=== PATIENT | female | born 1945 | race Caucasian/White ===

== ENCOUNTER 2019-01-31 09:36 | Emergency (ER) | payer MEDICARE, BC ==
[2019-01-31 10:19] VITALS: BP 136/57
--- NOTE | 2019-01-31 10:59 | UC ---
Throat Pain/Nasal Dillan HPI - HPI Summary HPI Summary: 73-year-old female presents with 2 day history of fever, chills, general malaise , fatigue, body aches, nasal congestion, sinus pressure, and nonproductive cough. Has not received her flu shot. History of pneumonia May 2018. Denies ear pain, dysphagia, chest pain, shortness of breath, abdominal pain, nausea, vomiting, or diarrhea. - History of Current Complaint Chief Complaint: UCRespiratory Stated Complaint: ACHES,COUGH Time Seen by Provider: 01/31/19 10:41 Hx Obtained From: Patient Pain Intensity: 7 - Allergies/Home Medications Allergies/Adverse Reactions: Allergies Allergy/AdvReac Type Severity Reaction Status Date / Time No Known Allergies Allergy Verified 01/31/19 10:09 Home Medications: Home Medications Dm/PE/Acetaminophen/Chlorphenr [Jillian-Maidens Plus Cld-Cough Cp] 1 each PO PRN [History] PMH/Surg Hx/FS Hx/Imm Hx Cardiovascular History: Hypertension, Atrial Fibrillation - Surgical History Surgical History: Yes Surgery Procedure, Year, and Place: Lt Breast biopsy - [facility] - Family History Known Family History: Positive: Non-Contributory - Social History Occupation: Employed Full-time Lives: With Family Alcohol Use: Weekly Alcohol Amount: GLASS OF WINE Substance Use Type: None Smoking Status (MU): Never Smoked Tobacco - Immunization History Most Recent Influenza Vaccination: FALL 2014 Most Recent Tetanus Shot: UP TO DATE Most Recent Pneumonia Vaccination: AROUND AGE 63 Review of Systems All Other Systems Reviewed And Are Negative: Yes Constitutional: Positive: Fever, Chills, Fatigue Skin: Negative: Rash Eyes: Negative: Drainage, Eye Redness ENT: Positive: Nasal Discharge, Sinus Congestion, Sinus Pain/Tenderness. Negative: Sore Throat, Ear Ache Respiratory: Positive: Cough. Negative: Shortness Of Breath Cardiovascular: Negative: Palpitations, Chest Pain Gastrointestinal: Negative: Abdominal Pain, Vomiting, Diarrhea, Nausea Genitourinary: Positive: Negative Musculoskeletal: Positive: Myalgia Neurological: Positive: Headache. Negative: Weakness, Paresthesia, Numbness Is Patient Immunocompromised?: No Physical Exam - Summary Physical Exam Summary: GENERAL APPEARANCE: Well developed, well nourished, alert and cooperative, older adult female who appears to be in no acute distress. EYES: Conjunctiva clear. No drainage. EARS: External auditory canals and tympanic membranes clear, hearing grossly intact. NOSE: Moderate nasal congestion. No nasal discharge. THROAT: Pharyngeal cobblestoning. No tonsilar inflammation, swelling, exudate, or lesions. Uvula midline. NECK: Neck supple, non-tender without lymphadenopathy. CARDIAC: Normal S1 and S2. No S3, S4 or murmurs. Rhythm is irregularly irregular. There is no peripheral edema, cyanosis or pallor. Extremities are warm and well perfused. Capillary refill is less than 2 seconds. Peripheral pulses intact. LUNGS: Clear to auscultation without rales, rhonchi, wheezing or diminished breath sounds. Dry, nonproductive cough. ABDOMEN: Positive bowel sounds. Soft, nondistended, nontender. No guarding or rebound. No masses or hepatosplenomegally. MUSKULOSKELETAL: ROM intact to all extremities. No joint erythema or tenderness. Normal muscular development. Normal gait. SKIN: Skin normal color, texture and turgor with no lesions or eruptions. Triage Information Reviewed: Yes Vital Signs: Initial Vital Signs Temp 98.2 F 01/31/19 10:13 Pulse 59 01/31/19 10:13 Resp 20 01/31/19 10:13 BP 136/57 01/31/19 10:13 Pulse Ox 98 01/31/19 10:13 Vital Signs Reviewed: Yes Throat Pain/Nasal Course/Dx - Course Course Of Treatment: 73-year-old female presents with 2 day history of fever, chills, general malaise , fatigue, body aches, nasal congestion, sinus pressure, and nonproductive cough. Has not received her flu shot. History of pneumonia May 2018. Denies ear pain, dysphagia, chest pain, shortness of breath, abdominal pain, nausea, vomiting, or diarrhea. Afebrile. Vital signs stable. Patient had moderate nasal congestion, normal TMs, pharyngeal cobblestoning, no tonsillar swelling or exudate, no cervical lymphadenopathy, clear bilateral breath sounds , dry nonproductive cough, and otherwise unremarkable exam. Rapid flu test was negative. Reviewed results with the patient. Recommending symptomatic treatment for a viral upper respiratory infection including prescriptions for fluticasone nasal spray and Tessalon Perles 1 every 8 hours as needed for cough. She is to follow-up with her primary care provider in 3-5 days if symptoms do not improve. Anticipatory guidance and warning symptoms were reviewed with the patient. Verbalizes understanding and agrees with plan of care. - Differential Dx/Diagnosis Differential Diagnosis/HQI/PQRI: Influenza, Sinusitis, URI, Other - Pneumonia, bronchitis Provider Diagnosis: Viral URI with cough Discharge ED - Sign-Out/Discharge Documenting (check all that apply): Patient Departure All imaging exams completed and their final reports reviewed: No Studies - Discharge Plan Condition: Stable Disposition: HOME Prescriptions: Benzonatate CAP* [Tessalon 100 MG CAP*] 100 mg PO TID PRN #21 cap PRN Reason: Cough Fluticasone NASAL SPRAY 50MCG* [Flonase NASAL SPRAY 50MCG*] 2 spray BOTH NARES DAILY #1 btl Patient Education Materials: Upper Respiratory Infection (ED) Referrals: Dinora Mireles NP [Primary Care Provider] - Additional Instructions: The rapid flu test performed in the clinic today was negative. Your history and exam are consistent with a viral upper respiratory infection. Viral infections do not respond to antibiotics and are limited to the treatment of symptoms. Viral infections typically run their course in 7-10 days. Drink plenty of fluids to avoid dehydration especially if you are running any fever. Use a saline rinse kit such as Neti Pot or NeilMed at least twice a day to help thin secretions and promote drainage of the sinuses. Use fluticasone (Flonase) nasal spray 2 sprays each nostril once daily. Use Tessalon Perles 1 capsule every 8 hours as needed for cough. Take over the counter acetaminophen (Tylenol) or ibuprofen (Advil, Motrin) according to directions as needed for pain or fever. Use salt water gargles several times a day if you have a sore throat. You may also use Chloraseptic spray or Cepacol lonzenges according to directions which contain a numbing medication and can provide some temporary relief from your sore throat. Follow up with your primary care provider in 3-5 days if symptoms persist. Seek immediate medical attention in the emergency room if you have fever greater than 100.5 F despite taking acetaminophen or ibuprofen, have chest pain , difficulty breathing, are unable to swallow, or have any worsening of symptoms. - Billing Disposition and Condition Condition: STABLE Disposition: Home
[2019-01-31 11:31] LABS: Influenza A Molecular NEGATIVE (Negative); Influenza B Molecular NEGATIVE (Negative)
== END 2019-01-31 11:51 | disposition home or self-care (01) ==
LOC: UCCORT 09:36
DX: J06.9 Acute upper respiratory infection, unspecified (principal); I10 Essential (primary) hypertension
CPT/HCPCS: 99212; G0463

== ENCOUNTER 2023-01-29 12:31 | Observation (INO) ==
[2023-01-29 13:22] LABS: ABS Eosinophils 0.1 10^3/uL (0.0-0.5); ABS Lymphocytes 1.1 10^3/uL (1.0-4.8); ABS Monocytes 0.3 10^3/uL (0.0-0.9); ABS Neutrophils 3.9 10^3/uL (1.5-7.6); Hematocrit 39.7 % (35-45); Hemoglobin 13.4 g/dL (11.5-14.3); Lymphocyte % 20.9 %; Mean Corpuscular Hemoglobin 31.6 pg (27-33); Mean Corpuscular Hgb Conc 33.8 g/dL (31-36); Mean Corpuscular Volume 93.5 fL (80-97); Mean Platelet Volume 7.8 fL (7.5-11.2); Nucleated Red Blood Cells % 0.1 %/100WBC (0.0-0.8); Platelet Count 235 10^3/uL (150-450); Red Blood Count 4.25 10^6/uL (3.63-4.92); Red Cell Distribution Width 14.7 % (12-17); White Blood Count 5.4 10^3/uL (3.8-11.8)
[2023-01-29 13:49] LABS: ALT 12 U/L (7-52); Albumin 4.3 g/dL (3.2-5.2); Albumin/Globulin Ratio 1.7 (1-3); Alkaline Phosphatase 66 U/L (35-149); Anion Gap 5 mmol/L (2-16); Blood Urea Nitrogen 13 mg/dL (6-24); CO2 Carbon Dioxide 29 mmol/L (22-32); Calcium 9.6 mg/dL (8.6-10.3); Chloride 103 mmol/L (101-111); Cholesterol 207 mg/dL; Creatinine, Serum 0.87 mg/dL (0.51-0.95); Globulin 2.5 g/dL (2-4); Glucose 101 mg/dL (70-100); LDL Cholesterol 119 mg/dL; Sodium 137 mmol/L (135-145); Total Bilirubin 0.5 mg/dL (0.2-1.0); Total Protein 6.8 g/dL (6.4-8.9); Triglycerides 108 mg/dL
[2023-01-29] MEDS ORDERED: Iohexol 350 (CONTRAST) 500 ML MDV IV ONE (14:10)
[2023-01-29 14:46] LABS: Potassium Redraw 3.8 mmol/L (3.5-5.0)
[2023-01-30 11:07] VITALS: BP 168/64
[2023-01-30] MEDS: Prochlorperazine 5 mg/ml 2 ml VIAL (10 mg) IV ONE ×2 (12:10→12:13)
== END 2023-01-30 17:30 | disposition home or self-care (01) ==
LOC: EDHOLD 12:31 → ED 12:31 → MEDTELE 17:19
PROVIDERS: ADMIT Student in an Organized Health Care Education/Training Program; ATTEND Student in an Organized Health Care Education/Training Program